=== PATIENT | male | born 1970 | race Caucasian/White ===

== ENCOUNTER 2017-09-26 16:09 | Emergency (ER) | payer OTHER ==
[2017-09-26] MEDS ORDERED: KETOROLAC 30 MG/1 ML SDV ONE (18:47)
--- NOTE | 2017-09-26 22:29 | EDPHY ---
H & P Time Seen by Provider: 09/26/17 17:50 HPI/ROS: CHIEF COMPLAINT: Headache, vision problems HISTORY OF PRESENT ILLNESS: This patient is a Armenian-speaking 46-year-old male complaining of headache and blurred vision. His symptoms began one week ago, but have worsened considerably in the last three days. His discomfort is intermittent and primarily in the occipital area. It is relieved with medication. He has intermittent blurred vision associated with his head pain. He denies numbness, weakness, or paresthesias. The patient denies any history of headaches. He does have history of anxiety and notes that his headache symptoms relieve somewhat when he takes lorazepam. He denies recent trauma or falls or any known injuries to his head or neck. No recent illness, fever, chills, or other associated symptoms. HPI obtained primarily through oil field caser at bedside. REVIEW OF SYSTEMS: A comprehensive 10 point review of systems is otherwise negative aside from elements mentioned in the history of present illness. - Medical/Surgical History PMH: Anxiety. - Social History Additional Social History: Nonsmoker. Social alcohol use. at bedside. PCP: Dr. Suazo in [place]. - Physical Exam Exam: General Appearance: Alert, no distress Eyes: Pupils equal and round no pallor or injection ENT, Mouth: Mucous membranes moist Respiratory: There are no retractions, lungs are clear to auscultation Cardiovascular: Regular rate and rhythm Gastrointestinal: Abdomen is soft and non tender, no masses, bowel sounds normal Neurological: A&O, normal motor function, normal sensory exam, normal cranial nerves Skin: Warm and dry, no rashes Musculoskeletal: Neck is supple. Non tender Extremities: Symmetrical, full range of motion Psychiatric: Patient is oriented X 3, there is no agitation Medical Decision Making - Diagnostics Imaging: Discussed imaging studies w/ call out operator Radiologist ED Course/Re-evaluation: 46-year-old male presents with headache and associated blurred vision. He is neurologically intact on exam. Plan for CT head, CTA head and neck, labs including I-stat. 18:[address] Peck, radiologist. CT head negative for acute processes. 19:[address] Peck. CTA head/neck negative for acute processes. Plan to administer IV Toradol for pain relief. 19:46 Reassessed patient. He is feeling better following Toradol administration. I discussed imaging and laboratory results with the patient through oil field caser at bedside. Plan to discharge home in good condition with prescription for prednisone. He will take Tylenol or ibuprofen as needed for pain. Follow up and return precautions discussed, including any neurologic deficits. Medical decision making: The patient has no clinical evidence of meningitis. His neurologic examination is normal. The patient has no visual field deficits. He has no vision loss in the emergency department. Imaging of the head and angiographic imaging of the head neck are normal. Patient did have improved symptoms following Toradol. I think it is reasonable to discharge him to home with a short course of prednisone and encouraged him to take a more appropriate dose of Tylenol and Motrin. The patient is comfortable being discharged home and is given customary aftercare instructions and return precautions. History, physical, discharge instructions all communicated to the patient via the residential leasing agent. Differential Diagnosis: Differential diagnosis considered includes tension headache, migraine headache, subarachnoid hemorrhage, [employer] mass, occipital neuralgia, vertebral artery dissection Departure - Departure Disposition: Home, Routine, Self-Care Clinical Impression: Tension headache Condition: Good Instructions: Tension Headache (ED) Additional Instructions: 1. Take Prednisone as prescribed 2. Take Tylenol or ibuprofen as directed below as needed for pain. 3. Return to the emergency department for worsening pain, neurologic deficits, other concerns. Referrals: Hever Suazo MD [Primary Care Provider] - As per Instructions Report Scribed for: Brien Rangel Report Scribed by: Almita Beltran Date of Report: 09/26/17 Time of Report: 22:28
== END 2017-09-26 19:50 | disposition home or self-care (01) ==
DX: G44.209 Tension-type headache, unspecified, not intractable (principal)
CPT/HCPCS: 82435-PO; 82565-PO; 82947-PO; 84132-PO; 84295-PO; 84520-PO; 85014-PO; J1885